=== PATIENT | male | born 1960 | race Caucasian/White ===

== ENCOUNTER 2018-04-16 13:25 | Emergency (ER) | payer OTHER ==
[2018-04-16 14:59] LABS: APPEARANCE,URINE Clear (CLEAR); BILIRUBIN,URINE Negative (NEGATIVE); COLOR,URINE Yellow (YELLOW); GLUCOSE, URINE (UA) Negative (NEGATIVE); KETONES,URINE Negative (NEGATIVE); LEUKOCYTE ESTERASE ,URINE Negative (NEGATIVE); NITRATE,URINE Negative (NEGATIVE); OCCULT BLOOD,URINE Negative (NEGATIVE); PH,URINE 6.5 (5.0-8.0); PROTEIN,URINE Negative (NEGATIVE); UROBILINOGEN,URINE 0.2 mg/dL (0.2-1.0)
== END 2018-04-16 16:28 | disposition home or self-care (01) ==
LOC: EDH 13:25
DX: R33.9 Retention of urine, unspecified (principal); Z79.899 Other long term (current) drug therapy; Z88.8 Allergy status to other drugs, medicaments and biological substances
CPT/HCPCS: 51702; 81003

== ENCOUNTER 2018-04-20 14:41 | Emergency (ER) | payer OTHER ==
[2018-04-20 15:57] LABS: APPEARANCE,URINE Clear (CLEAR); BILIRUBIN,URINE Negative (NEGATIVE); COLOR,URINE Yellow (YELLOW); GLUCOSE, URINE (UA) Negative (NEGATIVE); KETONES,URINE Negative (NEGATIVE); LEUKOCYTE ESTERASE ,URINE Negative (NEGATIVE); NITRATE,URINE Negative (NEGATIVE); OCCULT BLOOD,URINE Negative (NEGATIVE); PROTEIN,URINE Negative (NEGATIVE); UROBILINOGEN,URINE 0.2 mg/dL (0.2-1.0)
[2018-04-20 16:04] LABS: AMPHET/METH SCREEN,URINE NEGATIVE (NEGATIVE); BARBITURATE SCREEN, URINE NEGATIVE (NEGATIVE); BENZODIAZEPINES SCREEN,URINE POSITIVE (NEGATIVE); CANNABINOID SCREEN,URINE POSITIVE (NEGATIVE); COCAINE SCREEN,URINE NEGATIVE (NEGATIVE); OPIATE SCREEN,URINE NEGATIVE (NEGATIVE); PHENCYCLIDINE SCREEN,URINE NEGATIVE (NEGATIVE)
== END 2018-04-20 17:34 | disposition home or self-care (01) ==
LOC: EDH 14:41
DX: R33.9 Retention of urine, unspecified (principal); F12.10 Cannabis abuse, uncomplicated; F14.10 Cocaine abuse, uncomplicated; Z88.8 Allergy status to other drugs, medicaments and biological substances; Z87.891 Personal history of nicotine dependence
CPT/HCPCS: 80305; 81003

== ENCOUNTER 2022-05-26 11:38 | Emergency (ER) | payer OTHER ==
[~2022-05-26] VITALS: Ht 167.6 cm; Wt 70.8 kg
[2022-05-26 12:11] LABS: BASOPHILS % (AUTO) 1.1 % (0.0-5.0); EOSINOPHILS % (AUTO) 2.5 % (0.0-8.0); HEMATOCRIT 46.1 % (42-54); LYMPHOCYTES % (AUTO) 22.1 % (21.0-51.0); MEAN CORPUSCULAR HEMOGLOBIN 31.5 pg (27.0-33.0); MEAN CORPUSCULAR HGB CONC 33.2 g/dL (32.0-36.0); MEAN CORPUSCULAR VOLUME 94.9 fL (79-99); MONOCYTES % (AUTO) 12.3 % (3.0-13.0); NEUTROPHILS % (AUTO) 61.4 % (40.0-77.0); PLATELET COUNT (AUTO) 270 K/uL (130-400); RED BLOOD CELL COUNT(AUTO) 4.86 MIL/uL (4.50-6.20); RED CELL DISTRIBUTION WIDTH 13.2 % (11.0-15.5); WHITE BLOOD COUNT (AUTO) 8.5 K/uL (4.8-10.8)
[2022-05-26 12:20] LABS: CREATININE 0.8 mg/dL (0.5-1.5); POTASSIUM 3.5 mmol/L (3.5-5.1)
[2022-05-26 12:25] LABS: ALBUMIN 3.6 g/dL (3.5-5.0); TOTAL PROTEIN, SERUM 7.8 g/dL (6.0-8.3)
[2022-05-26] MEDS ORDERED: CLINDAMYCIN IVPB 600MG/50ML 50 ML IV SCH (13:00)
[2022-05-26] MEDS ORDERED: CLINDAMYCIN IVPB 600MG/50ML 50 ML IV ONE (13:01)
[2022-05-26] MEDS ORDERED: CLIN-141 PO (13:54)
[2022-05-26 14:21] VITALS: BP 90/54
== END 2022-05-26 14:25 | disposition home or self-care (01) ==
LOC: EDH 11:38
DX: L03.114 Cellulitis of left upper limb (principal); Z88.2 Allergy status to sulfonamides
CPT/HCPCS: 99284; 96365; 80053; 85025; 87040 ×2; 83605; 36415; J3490 ×2

== ENCOUNTER 2022-07-26 17:37 | Inpatient (IN) | payer OTHER ==
[~2022-07-26] VITALS: Ht 167.6 cm; Wt 71.3 kg
[~2022-07-26 17:37] MED LIST: CLIN-141 PO
[2022-07-26] MEDS ORDERED: 0.9%NACL 1000ML 1,000 ML IV ONE (18:00)
[2022-07-26 18:35] LABS: BASOPHILS % (AUTO) 0.8 % (0.0-5.0); EOSINOPHILS % (AUTO) 0.5 % (0.0-8.0); HEMATOCRIT 48.3 % (42-54); LYMPHOCYTES % (AUTO) 9.7 % (21.0-51.0); MEAN CORPUSCULAR HEMOGLOBIN 30.1 pg (27.0-33.0); MEAN CORPUSCULAR HGB CONC 33.1 g/dL (32.0-36.0); MEAN CORPUSCULAR VOLUME 90.8 fL (79-99); MONOCYTES % (AUTO) 8.1 % (3.0-13.0); NEUTROPHILS % (AUTO) 80.5 % (40.0-77.0); PLATELET COUNT (AUTO) 249 K/uL (130-400); RED BLOOD CELL COUNT(AUTO) 5.32 MIL/uL (4.50-6.20); WHITE BLOOD COUNT (AUTO) 11.3 K/uL (4.8-10.8)
[2022-07-26 18:45] LABS: CREATININE 0.9 mg/dL (0.5-1.5); POTASSIUM 4.2 mmol/L (3.5-5.1)
[2022-07-26 18:49] LABS: ALBUMIN 4.2 g/dL (3.5-5.0); TOTAL PROTEIN, SERUM 8.3 g/dL (6.0-8.3)
[2022-07-26 19:06] LABS: APPEARANCE,URINE CLOUDY (CLEAR); BACTERIA,URINE MOD /HPF (None Seen); BILIRUBIN,URINE NEGATIVE (NEGATIVE); COLOR,URINE LIGHT-YELLOW (YELLOW); GLUCOSE, URINE (UA) NEGATIVE (NEGATIVE); KETONES,URINE NEGATIVE (NEGATIVE); LEUKOCYTE ESTERASE ,URINE 500 Leu/uL (NEGATIVE); MUCUS,URINE RARE LPF (None Seen); NITRATE,URINE NEGATIVE (NEGATIVE); OCCULT BLOOD,URINE MODERATE (NEGATIVE); PH,URINE 5.5 (5.0-8.0); PROTEIN,URINE NEGATIVE (NEGATIVE); SQUAMOUS EPITHELIAL CELL,UR RARE /HPF (0-2); UROBILINOGEN,URINE 0.2 mg/dL (0.2-1.0); WBC,URINE 26-50 /HPF (0-1)
[2022-07-26 19:10] LABS: AMPHET/METH SCREEN,URINE NEGATIVE (NEGATIVE); BARBITURATE SCREEN, URINE NEGATIVE (NEGATIVE); BENZODIAZEPINES SCREEN,URINE POSITIVE (NEGATIVE); CANNABINOID SCREEN,URINE POSITIVE (NEGATIVE); COCAINE SCREEN,URINE NEGATIVE (NEGATIVE); OPIATE SCREEN,URINE POSITIVE (NEGATIVE); PHENCYCLIDINE SCREEN,URINE NEGATIVE (NEGATIVE)
[2022-07-26 19:54] LABS: ACETAMINOPHEN < 1 mcg/mL (10-29); SALICYLATE < 2.8 mg/dL (2.8-20.0)
[2022-07-26] MEDS ORDERED: IPRATROPIUM/ALBUTEROL SULFATE 3 ML SOLUTION IH ONE (21:30)
[2022-07-26] MEDS ORDERED: LEVOFLOXACIN 500 MG/D5W 100 ML 100 ML IV SCH (21:30)
[2022-07-26] MEDS ORDERED: SOLU-MEDROL 125MG VIAL IVP ONE (21:30)
[2022-07-26] MEDS ORDERED: GUAIFENESIN-DM 200/20 MG 10 ML PO PRN (22:00)
[2022-07-26] MEDS ORDERED: POTASSIUM CHLORIDE 20MEQ/100ML 100 ML IV PRN (22:00)
[2022-07-26] MEDS: CHLORDIAZEPOXIDE HCL 25 MG CAP PO SCH ×2 (22:00→22:06)
[2022-07-26] MEDS ORDERED: KCL 20 MEQ ERTAB PO PRN (22:00)
[2022-07-26] MEDS ORDERED: CEFTRIAXONE 1G VIAL 1 GM in 0.9%NACL 50ML 50 ML IV SCH (22:00)
[2022-07-26] MEDS ORDERED: ONDANSETRON 4MG INJ IV PRN (22:00)
[2022-07-26] MEDS ORDERED: LORAZEPAM 2 MG/ML 1 ML VIAL IVP PRN (22:00)
[2022-07-26] MEDS ORDERED: THIAMINE HCL 100 MG, FOLIC ACID 1 MG in 0.9%NACL 1000ML 1,000 ML IV SCH (22:00)
[2022-07-26] MEDS ORDERED: MAGNESIUM 2GM PREMIX 50ML 50 ML IV PRN (22:00)
[2022-07-26] MEDS ORDERED: POTASSIUM CHLORIDE 10% ELIXIR 20 MEQ/15 ML UDCUP PO PRN (22:00)
[2022-07-26] MEDS ORDERED: PHARMACY COMMUNICATION MISC PRN (22:00)
[2022-07-26] MEDS ORDERED: ACETAMINOPHEN 325 MG TAB PO PRN ×2 (22:00)
[2022-07-26] MEDS: DOXYCYCLINE 100MG+NS 250ML 250 ML IV SCH (22:06)
[2022-07-26] MEDS: CEFTRIAXONE 1G VIAL IVPB SCH (22:07)
[2022-07-26 22:30] LABS: AMMONIA < 10 umol/L (11-32)
[2022-07-26] MEDS: DIAZEPAM 5 MG TABLET PO PRN (22:35)
[2022-07-26] MEDS ORDERED: HYDRALAZINE 20MG/ML VIAL ONE (22:46)
[2022-07-26] MEDS ORDERED: SODIUM CHLORIDE 3% FOR INHALATION 4 ML/AMP VIAL.NEB IH ONE (23:13)
[2022-07-26] MEDS: HYDRALAZINE 20MG/ML VIAL IV PRN (23:19)
[2022-07-26 23:30] VITALS: BP 159/101
[2022-07-26] MEDS: IPRATROPIUM/ALBUTEROL SULFATE 3 ML SOLUTION IH SCH (23:33)
[2022-07-27 04:10] VITALS: BP 151/101
[2022-07-27] MEDS: MORPHINE 2 MG SYG IV PRN ×3 (04:49→22:18)
[2022-07-27 05:52] LABS: BASOPHILS % (AUTO) 0.1 % (0.0-5.0); HEMATOCRIT 47.1 % (42-54); LYMPHOCYTES % (AUTO) 6.1 % (21.0-51.0); MEAN CORPUSCULAR HEMOGLOBIN 30.4 pg (27.0-33.0); MEAN CORPUSCULAR HGB CONC 33.5 g/dL (32.0-36.0); MEAN CORPUSCULAR VOLUME 90.6 fL (79-99); MONOCYTES % (AUTO) 0.8 % (3.0-13.0); NEUTROPHILS % (AUTO) 92.7 % (40.0-77.0); PLATELET COUNT (AUTO) 238 K/uL (130-400); WHITE BLOOD COUNT (AUTO) 7.7 K/uL (4.8-10.8)
[2022-07-27 06:05] LABS: INR 0.99 (0.85-1.15); PROTHROMBIN TIME 10.8 SEC (9.6-11.6)
[2022-07-27 06:06] LABS: PARTIAL THROMBOPLASTIN TIME 32.2 SEC (26.3-35.5)
[2022-07-27 06:08] LABS: CREATININE 0.7 mg/dL (0.5-1.5); PHOSPHORUS 2.1 mg/dL (2.5-4.9); POTASSIUM 3.9 mmol/L (3.5-5.1)
[2022-07-27 06:21] LABS: HEMOGLOBIN A1C 7.4 % (4.0-6.0)
[2022-07-27] MEDS: INSULIN HUMULIN R 100 UNIT/ML 3ML SQ SCH ×4 (06:34→21:00)
[2022-07-27] MEDS: IPRATROPIUM/ALBUTEROL SULFATE 3 ML SOLUTION IH SCH ×3 (06:57→18:00)
[2022-07-27] MEDS: BUDESONIDE 0.5 MG/2 ML INH IH SCH ×2 (06:57→18:00)
[2022-07-27 07:05] VITALS: BP 153/112
[2022-07-27] MEDS: ENOXAPARIN SODIUM 40 MG/0.4 ML SYRINGE SQ SCH ×2 (09:00→09:14)
[2022-07-27] MEDS: FAMOTIDINE 20MG VIAL IV SCH ×2 (09:00→09:13)
[2022-07-27] MEDS: HYDRALAZINE 20MG/ML VIAL IV PRN (09:13)
[2022-07-27] MEDS: DOXYCYCLINE 100MG+NS 250ML 250 ML IV SCH ×2 (10:34→21:59)
[2022-07-27] MEDS: DIAZEPAM 5 MG TABLET PO PRN (10:35)
[2022-07-27 11:05] VITALS: BP 154/97
[2022-07-27] MEDS: MORPHINE 4 MG SYG IV PRN (12:13)
[2022-07-27] MEDS: PREGABALIN 75 MG CAPSULE PO SCH ×2 (14:47→21:10)
[2022-07-27 15:05] VITALS: BP 148/108
[2022-07-27 20:16] VITALS: BP 126/73
[2022-07-27] MEDS: CEFTRIAXONE 1G VIAL IVPB SCH (22:37)
[2022-07-27 23:16] VITALS: BP 134/78
[2022-07-28 03:15] VITALS: BP 128/72
[2022-07-28] MEDS: BUDESONIDE 0.5 MG/2 ML INH IH SCH ×2 (06:00→18:00)
[2022-07-28] MEDS: IPRATROPIUM/ALBUTEROL SULFATE 3 ML SOLUTION IH SCH ×5 (06:00→23:19)
[2022-07-28 06:25] LABS: BASOPHILS % (AUTO) 0.5 % (0.0-5.0); EOSINOPHILS % (AUTO) 0.3 % (0.0-8.0); HEMATOCRIT 46.9 % (42-54); LYMPHOCYTES % (AUTO) 15.3 % (21.0-51.0); MEAN CORPUSCULAR HEMOGLOBIN 30.1 pg (27.0-33.0); MEAN CORPUSCULAR HGB CONC 32.8 g/dL (32.0-36.0); MEAN CORPUSCULAR VOLUME 91.6 fL (79-99); MONOCYTES % (AUTO) 10.7 % (3.0-13.0); NEUTROPHILS % (AUTO) 72.9 % (40.0-77.0); PLATELET COUNT (AUTO) 236 K/uL (130-400); RED BLOOD CELL COUNT(AUTO) 5.12 MIL/uL (4.50-6.20); RED CELL DISTRIBUTION WIDTH 13.4 % (11.0-15.5); WHITE BLOOD COUNT (AUTO) 11.5 K/uL (4.8-10.8)
[2022-07-28 06:36] LABS: ALBUMIN 3.4 g/dL (3.5-5.0); CREATININE 0.8 mg/dL (0.5-1.5); CRP QUANTITATIVE 2.7 mg/L (0.00-9.0); MAGNESIUM 1.9 mg/dL (1.80-2.40); POTASSIUM 3.5 mmol/L (3.5-5.1); TOTAL PROTEIN, SERUM 7.2 g/dL (6.0-8.3)
[2022-07-28] MEDS: INSULIN HUMULIN R 100 UNIT/ML 3ML SQ SCH ×4 (06:41→21:20)
[2022-07-28 07:00] VITALS: BP 132/88
[2022-07-28] MEDS: FAMOTIDINE 20MG VIAL IV SCH (08:19)
[2022-07-28] MEDS: ENOXAPARIN SODIUM 40 MG/0.4 ML SYRINGE SQ SCH (08:22)
[2022-07-28] MEDS: PREGABALIN 75 MG CAPSULE PO SCH ×3 (08:23→21:20)
[2022-07-28] MEDS: DOXYCYCLINE 100MG+NS 250ML 250 ML IV SCH ×2 (10:00→10:35)
[2022-07-28 11:00] VITALS: BP 149/99
[2022-07-28] MEDS: MORPHINE 4 MG SYG IV PRN (12:18)
[2022-07-28] MEDS: DOXYCYCLINE HYCLATE 100 MG TABLET PO SCH ×2 (14:01→21:20)
[2022-07-28 16:00] VITALS: BP 141/96
[2022-07-28 20:08] VITALS: BP 151/94
[2022-07-28] MEDS: MORPHINE 2 MG SYG IV PRN (21:21)
[2022-07-28] MEDS: CEFTRIAXONE 1G VIAL IVPB SCH (22:52)
[2022-07-29] MEDS: MORPHINE 2 MG SYG IV PRN (03:13)
[2022-07-29] MEDS: IPRATROPIUM/ALBUTEROL SULFATE 3 ML SOLUTION IH SCH (06:00)
[2022-07-29] MEDS: BUDESONIDE 0.5 MG/2 ML INH IH SCH (06:00)
[2022-07-29] MEDS: INSULIN HUMULIN R 100 UNIT/ML 3ML SQ SCH ×2 (06:43→11:30)
[2022-07-29 07:19] LABS: EOSINOPHILS % (AUTO) 1.7 % (0.0-8.0); HEMATOCRIT 46.7 % (42-54); LYMPHOCYTES % (AUTO) 15.6 % (21.0-51.0); MEAN CORPUSCULAR HEMOGLOBIN 30.5 pg (27.0-33.0); MEAN CORPUSCULAR HGB CONC 32.8 g/dL (32.0-36.0); MEAN CORPUSCULAR VOLUME 93.2 fL (79-99); MONOCYTES % (AUTO) 10.2 % (3.0-13.0); NEUTROPHILS % (AUTO) 71.2 % (40.0-77.0); PLATELET COUNT (AUTO) 217 K/uL (130-400); RED BLOOD CELL COUNT(AUTO) 5.01 MIL/uL (4.50-6.20); RED CELL DISTRIBUTION WIDTH 13.5 % (11.0-15.5); WHITE BLOOD COUNT (AUTO) 10.5 K/uL (4.8-10.8)
[2022-07-29 07:44] LABS: ALBUMIN 3.4 g/dL (3.5-5.0); CREATININE 0.8 mg/dL (0.5-1.5); POTASSIUM 3.4 mmol/L (3.5-5.1); TOTAL PROTEIN, SERUM 7.1 g/dL (6.0-8.3)
[2022-07-29 08:00] VITALS: BP 143/89
[2022-07-29] MEDS: DOXYCYCLINE HYCLATE 100 MG TABLET PO SCH (08:54)
[2022-07-29] MEDS: FAMOTIDINE 20MG VIAL IV SCH (08:54)
[2022-07-29] MEDS: PREGABALIN 75 MG CAPSULE PO SCH ×2 (08:54→13:21)
[2022-07-29] MEDS: ENOXAPARIN SODIUM 40 MG/0.4 ML SYRINGE SQ SCH (08:55)
[2022-07-29] MEDS: MORPHINE 4 MG SYG IV PRN ×2 (08:56→13:22)
[2022-07-29 11:57] VITALS: BP 139/77
[2022-07-29] MEDS ORDERED: DOXY100T2 PO (12:57)
[2022-07-29] MEDS ORDERED: CEFU500T67 PO (12:57)
[2022-07-29] MEDS ORDERED: BUDE180H IH (12:59)
[2022-07-29] MEDS ORDERED: FLUC100T PO (13:09)
[2022-07-29 15:58] VITALS: BP 154/96
== END 2022-07-29 16:20 | disposition home or self-care (01) | DRG 193 ==
LOC: EDH 17:37 → EDHIP 21:39 → 3BH 23:30
PROVIDERS: ADMIT Family Medicine; ATTEND Family Medicine
DX: J18.9 Pneumonia, unspecified organism (principal); J96.01 Acute respiratory failure with hypoxia; R53.2 Functional quadriplegia; J96.02 Acute respiratory failure with hypercapnia; J44.1 Chronic obstructive pulmonary disease with (acute) exacerbation; N30.00 Acute cystitis without hematuria; G72.81 Critical illness myopathy; J44.0 Chronic obstructive pulmonary disease with (acute) lower respiratory infection; Z20.822 Contact with and (suspected) exposure to COVID-19; I10 Essential (primary) hypertension; F17.210 Nicotine dependence, cigarettes, uncomplicated; B96.1 Klebsiella pneumoniae [K. pneumoniae] as the cause of diseases classified elsewhere; R29.6 Repeated falls; E11.65 Type 2 diabetes mellitus with hyperglycemia; F31.9 Bipolar disorder, unspecified; F41.9 Anxiety disorder, unspecified; G89.29 Other chronic pain; N31.9 Neuromuscular dysfunction of bladder, unspecified; N40.0 Benign prostatic hyperplasia without lower urinary tract symptoms; M19.90 Unspecified osteoarthritis, unspecified site; Z99.3 Dependence on wheelchair
CPT/HCPCS: 36415; 71045; 80048; 80053; 80305; 81001; 82140; 82948; 83036; 83605; 83735; 84100; 84145; 84484; 85025; 85610; 85730; 86140; 87040; 87071; 87077; 87088; 87186; 87205; 87635; 87804; 93005; 94640; 94664; 97039; G0378; G0481; J0360; J0696; J1650; J1815; J1956; J2270; J2930; J3411; J3490; J7030

== ENCOUNTER 2022-08-27 15:59 | Emergency (ER) | payer OTHER ==
[~2022-08-27] VITALS: Ht 167.6 cm; Wt 70.8 kg
[~2022-08-27 15:59] MED LIST changes: +BUDE180H IH; +CEFU500T67 PO; -CLIN-141 PO; +DOXY100T2 PO; +FLUC100T PO
[2022-08-27 16:35] VITALS: BP 134/98
[2022-08-27 17:29] LABS: APPEARANCE,URINE CLEAR (CLEAR); BILIRUBIN,URINE NEGATIVE (NEGATIVE); COLOR,URINE LIGHT-YELLOW (YELLOW); GLUCOSE, URINE (UA) NEGATIVE (NEGATIVE); KETONES,URINE NEGATIVE (NEGATIVE); LEUKOCYTE ESTERASE ,URINE NEGATIVE Leu/uL (NEGATIVE); NITRATE,URINE NEGATIVE (NEGATIVE); OCCULT BLOOD,URINE NEGATIVE (NEGATIVE); PH,URINE 5.5 (5.0-8.0); PROTEIN,URINE 10 mg/dL (NEGATIVE); UROBILINOGEN,URINE 0.2 mg/dL (0.2-1.0)
[2022-08-27 17:44] LABS: BACTERIA,URINE RARE /HPF (None Seen); MUCUS,URINE RARE LPF (None Seen)
[2022-08-27] MEDS ORDERED: DOCU-116 PO (18:16)
== END 2022-08-27 18:34 | disposition home or self-care (01) ==
LOC: EDH 15:59
DX: T83.098A Other mechanical complication of other urinary catheter, initial encounter (principal); K59.00 Constipation, unspecified; I25.10 Atherosclerotic heart disease of native coronary artery without angina pectoris; E11.9 Type 2 diabetes mellitus without complications; E78.00 Pure hypercholesterolemia, unspecified; Z79.51 Long term (current) use of inhaled steroids; Z88.2 Allergy status to sulfonamides; Y82.9 Unspecified medical devices associated with adverse incidents; Y92.89 Other specified places as the place of occurrence of the external cause
CPT/HCPCS: 81001; 99282

== ENCOUNTER 2022-09-09 19:52 | Emergency (ER) | payer OTHER ==
[~2022-09-09] VITALS: Ht 167.6 cm; Wt 70.8 kg
[~2022-09-09 19:52] MED LIST changes: +DOCU-116 PO
[2022-09-09 19:53] VITALS: BP 161/118
== END 2022-09-09 22:58 | disposition home or self-care (01) ==
LOC: EDH 19:52
DX: S90.31XA Contusion of right foot, initial encounter (principal); S90.32XA Contusion of left foot, initial encounter; G82.20 Paraplegia, unspecified; Z79.51 Long term (current) use of inhaled steroids; Z88.2 Allergy status to sulfonamides; W19.XXXA Unspecified fall, initial encounter; Y93.89 Activity, other specified; Y92.89 Other specified places as the place of occurrence of the external cause; Y99.8 Other external cause status
CPT/HCPCS: 36415; 73590; 73600; 73630; 85378; 93970